=== PATIENT | female | born 1945 | race Hispanic/Latino ===

== ENCOUNTER 2017-03-12 16:28 | Emergency (ER) | payer OTHER, MEDICARE ==
[2017-03-12 16:36] VITALS: BMI 26.5
[2017-03-12 16:42] VITALS: BP 127/79; PULSE 70; RESP 19; TEMP 98.6; O2SAT 96
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
== END 2017-03-12 18:16 | disposition home or self-care (01) ==
LOC: ED 16:28
DX: S09.90XA Unspecified injury of head, initial encounter (principal); S16.1XXA Strain of muscle, fascia and tendon at neck level, initial encounter; V49.49XA Driver injured in collision with other motor vehicles in traffic accident, initial encounter; Y92.410 Unspecified street and highway as the place of occurrence of the external cause

== ENCOUNTER 2018-01-25 14:03 | Observation (INO) | payer MEDICARE, OTHER ==
[2018-01-25 14:07] VITALS: BMI 28.9
[2018-01-25] MEDS ORDERED: Ipratropium 0.02% Inhal Soln (0.5 mg/2.5 ml) UD IH STA (14:07)
--- NOTE | 2018-01-25 14:42 | ED PDOC ---
Arrival/HPI - General Time Seen by Provider: 01/25/18 14:07 Historian: Patient - History of Present Illness Narrative History of Present Illness (Text): 01/25/18 14:03 A 72 year old female non-smoker, whose past medical history includes COPD and hypertension, presents to the emergency department complaining of persistent productive cough with yellowish mucous for 1 week. Patient reports cough has been nagging and was originally associated with body aches, fever, chills, and sore throat, however accompanied symptoms are no longer present. Patient notes experiencing increasing shortness of breath, but denies any chest pain, nausea, vomiting, or any recent fever. No PMD Past Medical History - Provider Review Nursing Documentation Reviewed: Yes - Infectious Disease Hx of Infectious Diseases: None - Tetanus Immunization Tetanus Immunization: Unknown - Cardiac Hx Cardiac Disorders: Yes Hx Hypertension: Yes - Pulmonary Hx Respiratory Disorders: Yes Hx Asthma: Yes - Neurological Hx Neurological Disorder: No - HEENT Hx HEENT Disorder: No - Renal Hx Renal Disorder: No - Endocrine/Metabolic Hx Endocrine Disorders: No - Hematological/Oncological Hx Blood Disorders: No - Integumentary Hx Dermatological Disorder: No - Musculoskeletal/Rheumatological Hx Musculoskeletal Disorders: No - Gastrointestinal Hx Gastrointestinal Disorders: No - Genitourinary/Gynecological Hx Genitourinary Disorders: No - Psychiatric Hx Psychophysiologic Disorder: No Hx Depression: No Hx Emotional Abuse: No Hx Physical Abuse: No Hx Substance Use: No - Past Surgical History Past Surgical History: Non-Contributing - Surgical History Hx Tubal Ligation: Yes - Anesthesia Hx Anesthesia: Yes Hx Anesthesia Reactions: No - Suicidal Assessment Feels Threatened In Home Enviroment: No Family/Social History - Physician Review Nursing Documentation Reviewed: Yes Family/Social History: No Known Family HX Smoking Status: Never Smoked Hx Alcohol Use: No Hx Substance Use: No Hx Substance Use Treatment: No Allergies/Home Meds Allergies/Adverse Reactions: Allergies No Known Allergies Allergy (Verified 03/12/17 16:37) Home Medications: Home Meds Medication Instructions Recorded Confirmed Hydrochlorothiazide/Valsarta 1 tab PO QAM 04/03/14 03/12/17 [Diovan Hct 12.5 mg-160 mg] Review of Systems - Physician Review All systems were reviewed & negative as marked: Yes - Review of Systems Constitutional: absent: Fevers, Night Sweats ENT: absent: Sore Throat Respiratory: SOB (increasing), Cough (productive) Cardiovascular: absent: Chest Pain Gastrointestinal: absent: Nausea, Vomiting Physical Exam Vital Signs Reviewed: Yes Vital Signs Temp Pulse Resp BP Pulse Ox 01/25/18 16:05 99.0 F 83 18 140/62 99 01/25/18 14:13 98.4 F 81 18 120/77 98 Temperature: Afebrile Blood Pressure: Normal Pulse: Regular Respiratory Rate: Normal Appearance: Positive for: Well-Appearing Pain Distress: None Mental Status: Positive for: Alert and Oriented X 3 - Systems Exam Head: Present: Atraumatic, Normocephalic Pupils: Present: PERRL Extroacular Muscles: Present: EOMI Mouth: Present: Moist Mucous Membranes Respiratory/Chest: Present: Wheezes (expiratory), Rhonchi (scattered ) Cardiovascular: Present: Regular Rate and Rhythm, Normal S1, S2. No: Murmurs Abdomen: No: Tenderness, Distention, Peritoneal Signs Upper Extremity: Present: Normal Inspection. No: Cyanosis, Edema Lower Extremity: Present: Normal Inspection. No: Edema Neurological: Present: GCS=15, CN II-XII Intact, Speech Normal Skin: Present: Warm, Dry, Normal Color. No: Rashes Psychiatric: Present: Alert, Oriented x 3, Normal Insight, Normal Concentration Medical Decision Making ED Course and Treatment: 01/25/18 14:07 Impression: 72 year old female with productive cough. Physical exam shows expiratory wheezing and scattered rhonchi. Plan: -- EKG -- Chest X-ray -- Labs -- Venous Blood Gas -- Duoneb -- Blood Culture -- Nasal Cannula O2 -- Urinalysis -- Reassess and disposition Progress Notes: 01/25/2018 14:50 Chest X-ray IMPRESSION: No active disease. No significant interval change compared to the prior examination(s). Dictator: Drew Patel MD - Lab Interpretations Lab Results: 01/25/18 15:05 01/25/18 15:05 Lab Results 01/25/18 15:05: Urine Color Light yellow, Urine Appearance Slight-cloudy, Urine pH 7.0, Ur Specific [place] <= 1.005, Urine Protein Trace H, Urine Glucose (UA) Negative, Urine Ketones Negative, Urine Blood Trace-intact H, Urine Nitrate Negative, Urine Bilirubin Negative, Urine Urobilinogen 0.2, Ur Leukocyte Esterase Large H, Urine RBC 2 - 5, Urine WBC 25 - 30, Ur Epithelial Cells 0 - 2 , Urine Bacteria Mod, Urine Other Utrans 01/25/18 15:05: Sodium 139, Chloride 99, Potassium 4.1, Carbon Dioxide 29, Anion Gap 16, BUN 12, Creatinine 0.9, Est GFR ( Amer) > 60, Est GFR (Non- Af Amer) > 60, Random Glucose 103, Calcium 9.3, Total Bilirubin 0.8, AST 23, ALT 32, Alkaline Phosphatase 86, Lactate Dehydrogenase 400, Total Creatine Kinase 90, Troponin I < 0.01, NT-Pro-B Natriuret Pep 74.8, Total Protein 7.4, Albumin 4.3, Globulin 3.1, Albumin/Globulin Ratio 1.4 01/25/18 15:05: pO2 18 L, VBG pH 7.39, VBG pCO2 49.0, VBG HCO3 29.7 H, VBG Total CO2 31.2 H, VBG O2 Sat (Calc) 42.8, VBG Base Excess 3.7 H, VBG Potassium 4.0, Sodium 139.0, Chloride 101.0, Glucose 116 H, Lactate 1.8, FiO2 21.0, Venous Blood Potassium 4.0 01/25/18 15:05: PT 12.4, INR 1.09 H, APTT 34.1 01/25/18 15:05: WBC 4.6, RBC 4.63, Hgb 14.0, Hct 41.8, MCV 90.3, MCH 30.2, MCHC 33.5, RDW 13.3, Plt Count 247, MPV 8.6, Gran % 65.6, Lymph % (Auto) 23.9, [place] % (Auto) 9.0 H, Eos % (Auto) 1.1 L, Baso % (Auto) 0.4, Gran # 2.99, Lymph # ( Auto) 1.1 L, [place] # (Auto) 0.4, Eos # (Auto) 0.1, Baso # (Auto) 0.02 I have reviewed the lab results: Yes - RAD Interpretation Radiology Orders: 01/25/18 14:09 CHEST PORTABLE [RAD] Stat - Medication Orders Current Medication Orders: Discontinued Medications Albuterol/Ipratropium (Duoneb 3 Mg/0.5 Mg (3 Ml) Ud) 3 ml IH Q15M CATHY Stop: 01/25/18 15:01 Last Admin: 01/25/18 15:20 Dose: 3 ml Ipratropium [place] (Atrovent) 0.5 mg IH STAT STA Stop: 01/25/18 14:08 Last Admin: 01/25/18 15:35 Dose: 0.5 mg Methylprednisolone (Solu-Medrol) 125 mg IVP STAT STA Stop: 01/25/18 14:21 Last Admin: 01/25/18 14:55 Dose: 125 mg IVP Administration Document 01/25/18 14:55 OCS (Rec: 01/25/18 14:55 OCS [id number]) Charges for Administration # of IVP Administrations 1 - Scribe Statement The provider has reviewed the documentation as recorded by the Tran Taveras Provider Scribe Attestation: All medical record entries made by the Scribe were at my direction and personally dictated by me. I have reviewed the chart and agree that the record accurately reflects my personal performance of the history, physical exam, medical decision making, and the department course for this patient. I have also personally directed, reviewed, and agree with the discharge instructions and disposition. Disposition/Present on Arrival - Present on Arrival Any Indicators Present on Arrival: No History of DVT/PE: No History of Uncontrolled Diabetes: No Urinary Catheter: No History Surgical Site Infection Following: None - Disposition Have Diagnosis and Disposition been Completed?: Yes Diagnosis: COPD with acute bronchitis, Near syncope Disposition: HOSPITALIZED Disposition Time: 16:37 Patient Plan: Admission, Telemetry Condition: GUARDED
--- NOTE | 2018-01-25 14:51 | RAD ---
HISTORY: Point shortness of breath. COMPARISON: 08/23/2016 FINDINGS: LUNGS: No active pulmonary disease. Incidental finding(s): Calcified granuloma left lower lobe. PLEURA: No significant pleural effusion identified, no pneumothorax apparent. CARDIOVASCULAR: No radiographic findings to suggest acute or significant cardiovascular disease. OSSEOUS STRUCTURES: No significant abnormalities. VISUALIZED UPPER ABDOMEN: Normal. OTHER FINDINGS: None. IMPRESSION: No active disease. No significant interval change compared to the prior examination(s).
[2018-01-25] MEDS: Albuterol-Ipratrop 3 mg / 0.5 (3 ml) UD IH SCH ×3 (14:55→15:20)
[2018-01-25 15:20] LABS: VENOUS BLOOD GAS BASE EXCESS 3.7 mmol/L (0.0-2.0); VENOUS BLOOD GAS PO2 18 mm/Hg (30-55); VENOUS BLOOD PH 7.39 (7.32-7.43)
[2018-01-25 15:21] LABS: BASO # 0.02 K/mm3 (0.0-2.0); BASO % 0.4 % (0.0-3.0); EOS # 0.1 (0.0-0.7); EOS % 1.1 % (1.5-5.0); GRAN # 2.99 (1.4-6.5); GRAN % 65.6 % (50.0-68.0); LYMPH # 1.1 (1.2-3.4); LYMPH % 23.9 % (22.0-35.0); MEAN CELL VOLUME 90.3 fl (80.0-105.0); MEAN CORPUSCULAR HEMOGLOBIN 30.2 pg (25.0-35.0); MEAN CORPUSCULAR HGB CONC 33.5 g/dl (31.0-37.0); MEAN PLATELET VOLUME 8.6 fl (7.0-11.0); MONO # 0.4 (0.1-0.6); RBC 4.63 10^6/uL (3.5-6.1); RED CELL DISTRIBUTION WIDTH 13.3 % (11.5-14.5); WHITE BLOOD COUNT 4.6 10^3/ul (4.5-11.0)
[2018-01-25 15:22] LABS: URINE BILIRUBIN NEGATIVE (NEGATIVE); URINE BLOOD TRACE-INTACT (NEGATIVE); URINE GLUCOSE (UA) NEGATIVE (NEGATIVE); URINE LEUKOCYTE ESTERASE LARGE Leu/uL (NEGATIVE); URINE PROTEIN TRACE mg/dL (<30 mg/dL); URINE UROBILINOGEN 0.2 E.U./dL (<1 E.U./dL)
[2018-01-25 15:23] LABS: URINE APPEARANCE SLIGHT-CLOUDY (CLEAR); URINE COLOR LIGHT YELLOW (YELLOW)
[2018-01-25 15:30] LABS: ALB/GLOB RATIO 1.4 (1.1-1.8); ALBUMIN 4.3 g/dL (3.0-4.8); ALT/SGPT 32 U/L (7-56); AST/SGOT 23 U/L (14-36); BLOOD UREA NITROGEN 12 mg/dL (7-21); CALCIUM 9.3 mg/dL (8.4-10.5); GFR AFRICAN-AMERICAN > 60; GFR NON-AFRICAN AMERICAN > 60
[2018-01-25 15:35] LABS: INR 1.09 (0.93-1.08); PARTIAL THROMBOPLASTIN TIME 34.1 Seconds (25.1-36.5); PROTHROMBIN TIME 12.4 SECONDS (9.4-12.5)
[2018-01-25 15:40] LABS: URINE BACTERIA MOD (NEG); URINE EPITHELIAL CELLS 0 - 2 /hpf (0-5); URINE WBC 25 - 30 /hpf (0-6)
[2018-01-25 15:42] LABS: B-TYPE NATRIURETIC PEPTIDE 74.8 pg/mL (0-450); TROPONIN I < 0.01 ng/mL
[2018-01-25] MEDS ORDERED: Albuterol-Ipratrop 3 mg / 0.5 (3 ml) UD IH STA (17:45)
[2018-01-25] MEDS ORDERED: Albuterol-Ipratrop 3 mg / 0.5 (3 ml) UD IH PRN (18:25)
[2018-01-25] MEDS ORDERED: cefTRIAXone 1 gm 1 GM/100 ML BAG IVPB STA (18:32)
--- NOTE | 2018-01-25 20:10 | CARD ---
APPROVED REPORT EKG Measurement Heart [id number] CT [id number] <Conclusion> Sinus rhythm with occasional premature ventricular complexes Otherwise normal ECG
--- NOTE | 2018-01-25 22:55 | CP.PCM.PN ---
Subjective - Date & Time of Evaluation Date of Evaluation: 01/25/18 Time of Evaluation: 22:55 - Subjective Subjective: Nurse calls for an order of rapid flu test. Patient allegedly had cough, body aches. Later on she calls to get an order for cough medicine. Patient was seen at bedside. States that she has cough with yellow sputum. She had fever, headache, sore throat nausea, body aches.They have passed. No other complaints now. This 72 year old white woman is admitted with cough with expectorant, bodyache , fever, chills , sore throat. Has PMH of COPD, HTN, tubal ligation. Objective - Vital Signs/Intake and Output Vital Signs (last 24 hours): Temp Pulse Resp BP Pulse Ox 98.2 F 84 18 116/78 100 01/25/18 19:45 01/25/18 19:45 01/25/18 19:45 01/25/18 19:45 01/25/18 19:45 - Medications Medications: Current Medications Albuterol/Ipratropium (Duoneb 3 Mg/0.5 Mg (3 Ml) Ud) 3 ml IH Q4H PRN PRN Reason: Shortness of Breath Albuterol/Ipratropium (Duoneb 3 Mg/0.5 Mg (3 Ml) Ud) 3 ml IH Q0HYMSU [facility] Hydrochlorothiazide (Microzide) 12.5 mg PO DAILY [facility] Ceftriaxone Sodium (Rocephin 1 Gram Ivpb) 1 gm in 100 mls @ 100 mls/hr IVPB DAILY [facility] PRN Reason: Protocol Losartan Potassium (Cozaar) 100 mg PO DAILY [facility] Methylprednisolone (Solu-Medrol) 60 mg IVP Q8 [facility] - Labs Labs: PT 12.4 SECONDS (9.4-12.5) 01/25/18 15:05 INR 1.09 (0.93-1.08) H 01/25/18 15:05 APTT 34.1 Seconds (25.1-36.5) 01/25/18 15:05 Last Vital Signs 3 Temp 99.8 F H 01/26/18 00:01 Pulse 71 01/26/18 02:00 Resp 20 01/26/18 01:56 BP 118/61 01/26/18 00:01 Pulse Ox 96 01/26/18 01:56 Most Recent Lab Values WBC 4.6 10^3/ul (4.5-11.0) 01/25/18 15:05 RBC 4.63 10^6/uL (3.5-6.1) 01/25/18 15:05 Hgb 14.0 g/dL (12.0-16.0) 01/25/18 15:05 Hct 41.8 % (36.0-48.0) 01/25/18 15:05 MCV 90.3 fl (80.0-105.0) 01/25/18 15:05 MCH 30.2 pg (25.0-35.0) 01/25/18 15:05 MCHC 33.5 g/dl (31.0-37.0) 01/25/18 15:05 RDW 13.3 % (11.5-14.5) 01/25/18 15:05 Plt Count 247 10^3/uL (120.0-450.0) 01/25/18 15:05 MPV 8.6 fl (7.0-11.0) 01/25/18 15:05 Gran % 65.6 % (50.0-68.0) 01/25/18 15:05 Lymph % (Auto) 23.9 % (22.0-35.0) 01/25/18 15:05 Kimble % (Auto) 9.0 % (1.0-6.0) H 01/25/18 15:05 Eos % (Auto) 1.1 % (1.5-5.0) L 01/25/18 15:05 Baso % (Auto) 0.4 % (0.0-3.0) 01/25/18 15:05 Gran # 2.99 (1.4-6.5) 01/25/18 15:05 Lymph # (Auto) 1.1 (1.2-3.4) L 01/25/18 15:05 Kimble # (Auto) 0.4 (0.1-0.6) 01/25/18 15:05 Eos # (Auto) 0.1 (0.0-0.7) 01/25/18 15:05 Baso # (Auto) 0.02 K/mm3 (0.0-2.0) 01/25/18 15:05 PT 12.4 SECONDS (9.4-12.5) 01/25/18 15:05 INR 1.09 (0.93-1.08) H 01/25/18 15:05 APTT 34.1 Seconds (25.1-36.5) 01/25/18 15:05 pO2 18 mm/Hg (30-55) L 01/25/18 15:05 VBG pH 7.39 (7.32-7.43) 01/25/18 15:05 VBG pCO2 49.0 (40-60) 01/25/18 15:05 VBG HCO3 29.7 mmol/l (21-28) H 01/25/18 15:05 VBG Total CO2 31.2 mmol.L (22-28) H 01/25/18 15:05 VBG O2 Sat (Calc) 42.8 % (40-65) 01/25/18 15:05 VBG Base Excess 3.7 mmol/L (0.0-2.0) H 01/25/18 15:05 VBG Potassium 4.0 mmol/L (3.6-5.2) 01/25/18 15:05 Sodium 139.0 mmol/L (132-148) 01/25/18 15:05 Chloride 101.0 mmol/L (98-107) 01/25/18 15:05 Glucose 116 mg/dl (65-105) H 01/25/18 15:05 Lactate 1.8 mmol/L (0.7-2.1) 01/25/18 15:05 FiO2 21.0 % 01/25/18 15:05 Sodium 139 mmol/L (132-148) 01/25/18 15:05 Potassium 4.1 mmol/L (3.6-5.0) 01/25/18 15:05 Chloride 99 mmol/L (98-107) 01/25/18 15:05 Carbon Dioxide 29 mmol/L (21-33) 01/25/18 15:05 Anion Gap 16 (10-20) 01/25/18 15:05 BUN 12 mg/dL (7-21) 01/25/18 15:05 Creatinine 0.9 mg/dl (0.7-1.2) 01/25/18 15:05 Est GFR ( Amer) > 60 01/25/18 15:05 Est GFR (Non-Af Amer) > 60 01/25/18 15:05 Random Glucose 103 mg/dL (70-110) 01/25/18 15:05 Calcium 9.3 mg/dL (8.4-10.5) 01/25/18 15:05 Total Bilirubin 0.8 mg/dL (0.2-1.3) 01/25/18 15:05 AST 23 U/L (14-36) 01/25/18 15:05 ALT 32 U/L (7-56) 01/25/18 15:05 Alkaline Phosphatase 86 U/L (38-126) 01/25/18 15:05 Lactate Dehydrogenase 400 U/L (333-699) 01/25/18 15:05 Total Creatine Kinase 90 U/L (35-230) 01/25/18 15:05 Troponin I < 0.01 ng/mL 01/25/18 15:05 NT-Pro-B Natriuret Pep 74.8 pg/mL (0-450) 01/25/18 15:05 Total Protein 7.4 g/dL (5.8-8.3) 01/25/18 15:05 Albumin 4.3 g/dL (3.0-4.8) 01/25/18 15:05 Globulin 3.1 gm/dL 01/25/18 15:05 Albumin/Globulin Ratio 1.4 (1.1-1.8) 01/25/18 15:05 Venous Blood Potassium 4.0 mmol/L (3.6-5.2) 01/25/18 15:05 Urine Color Light yellow (YELLOW) 01/25/18 15:05 Urine Appearance Slight-cloudy (CLEAR) 01/25/18 15:05 Urine pH 7.0 (4.7-8.0) 01/25/18 15:05 Ur Specific Lykens <= 1.005 (1.005-1.035) 01/25/18 15:05 Urine Protein Trace mg/dL (<30 mg/dL) H 01/25/18 15:05 Urine Glucose (UA) Negative mg/dL (NEGATIVE) 01/25/18 15:05 Urine Ketones Negative mg/dL (NEGATIVE) 01/25/18 15:05 Urine Blood Trace-intact (NEGATIVE) H 01/25/18 15:05 Urine Nitrate Negative (NEGATIVE) 01/25/18 15:05 Urine Bilirubin Negative (NEGATIVE) 01/25/18 15:05 Urine Urobilinogen 0.2 E.U./dL (<1 E.U./dL) 01/25/18 15:05 Ur Leukocyte Esterase Large Rodrick/uL (NEGATIVE) H 01/25/18 15:05 Urine RBC 2 - 5 /hpf (0-2) 01/25/18 15:05 Urine WBC 25 - 30 /hpf (0-6) 01/25/18 15:05 Ur Epithelial Cells 0 - 2 /hpf (0-5) 01/25/18 15:05 Urine Bacteria Mod (NEG) 01/25/18 15:05 Urine Other Utrans 01/25/18 15:05 Influenza Typ A,B (EIA) Negative for flu a/b (NEGATIVE) 01/25/18 21:30 - Constitutional Appears: Well, No Acute Distress - Head Exam Head Exam: ATRAUMATIC, NORMAL INSPECTION, NORMOCEPHALIC - Eye Exam Eye Exam: Normal appearance - ENT Exam ENT Exam: Normal External Ear Exam - Neck Exam Neck Exam: Normal Inspection - Respiratory Exam Respiratory Exam: NORMAL BREATHING PATTERN - Cardiovascular Exam Cardiovascular Exam: absent: JVD - GI/Abdominal Exam GI & Abdominal Exam: absent: Distended - Rectal Exam Rectal Exam: Deferred - Exam Additional comments: Deferred. - Extremities Exam Extremities Exam: Normal Inspection - Back Exam Back Exam: NORMAL INSPECTION - Neurological Exam Neurological Exam: Alert, Awake, Oriented x3 - Psychiatric Exam Psychiatric exam: Normal Affect, Normal Mood - Skin Skin Exam: Normal Color Assessment and Plan - Assessment and Plan (Free Text) Assessment: Cough with expectorant. Harsh cough. Cough secondary to Cozaar? ?Whooping cough. Flu like symptoms. HTN. COPD. History of tubal ligation. Plan: Robitussin 200 mg PO Q4H prn cough. Codeine phosphate 30 mg PO X 1. Sputum for gram stain , C & S. Hold Cozaar. Continue management as per PMD.
[2018-01-26] MEDS: Albuterol-Ipratrop 3 mg / 0.5 (3 ml) UD IH SCH ×3 (01:30→13:44)
[2018-01-26 02:05] VITALS: RESP 20
[2018-01-26] MEDS ORDERED: guaiFENesin 200 mg/10 ml Syrup UD PO PRN (02:46)
[2018-01-26 06:25] VITALS: O2SAT 94
[2018-01-26] MEDS ORDERED: Iohexol 350 MG/100 ML VIAL ONE (07:53)
[2018-01-26] MEDS ORDERED: [UNRECOGNIZED DRUG - OTHER] PO SCH (10:00)
[2018-01-26] MEDS ORDERED: cefTRIAXone 1 gm 1 GM/100 ML BAG IVPB SCH (10:00)
--- NOTE | 2018-01-26 10:00 | CT ---
PROCEDURE: CT Chest with contrast HISTORY: copd COMPARISON: None. TECHNIQUE: Contiguous axial images were obtained through the chest with intravenous contrast enhancement. Sagittal and coronal reconstructions were performed. IV contrast: 100 cc of Omni 350 Radiation dose (DLP): 507 mGy-cm. This CT exam was performed using one or more of the following dose reduction techniques: Automated exposure control, adjustment of the mA and/or kV according to patient size, and/or use of iterative reconstruction technique. FINDINGS: LUNGS: There is linear scarring or atelectasis at both lung bases posteriorly. Small pleural effusions. Calcified granuloma in the left lower lobe. MEDIASTINUM: Unremarkable thoracic aorta. No aneurysm or dissection. Normal sized heart. Main pulmonary artery unremarkable. No vascular congestion. No lymphadenopathy. PLEURA: Small pleural effusions. BONES: No fracture. No destructive lesion. UPPER ABDOMEN: Grossly unremarkable. OTHER FINDINGS: None. IMPRESSION: Linear atelectasis or scarring at both lung bases. Small pleural effusions.
--- NOTE | 2018-01-26 10:11 | HP ---
HISTORY OF PRESENT ILLNESS: A 72-year-old white female with history of asthma, COPD, nonsmoker, seen in the office yesterday with severe shortness of breath, coughing, sputum production, difficulty breathing, near syncopal episode. The patient was sent to the ER for evaluation and was found to have urinary tract infection and also found to have severe hypoxia and hypercapnia. The patient was treated with steroids, bronchodilators and antibiotics. Vital signs are stable today at 98.8 and she is breathing more freely today. She has got shortness of breath. She is on antibiotics, bronchodilators and guaifenesin. She was going to have a CT of the chest today to rule out other bronchiectasis versus pneumonia and she will be discharged home if CAT scan is negative. PHYSICAL EXAMINATION GENERAL: A well-developed, well-nourished white female in no apparent distress the following morning. HEENT: Within normal limits. HEART: Regular sinus rhythm. CHEST: Rhonchi, rales, and wheezing in all lung leon, but decreased from previous. ABDOMEN: Benign. EXTREMITIES: No cyanosis, clubbing, or edema. NEUROLOGIC: Appears grossly intact. Ariel Morales MD
[2018-01-26 14:12] VITALS: BP 139/70; PULSE 83; TEMP 98.3
--- NOTE | 2018-01-27 01:30 | CON ---
DATE: 01/26/2018 PULMONARY CONSULT REFERRING PHYSICIAN: Ariel Morales MD. REASON FOR CONSULT: Cough, shortness of breath, loud snoring, daytime sleepy and tired. HISTORY OF PRESENT ILLNESS: This is a 72-year-old female with past medical history significant for chronic obstructive lung disease, who has a history of loud snoring, daytime sleepy, has been having cough, shortness of breath. No nausea. No vomiting. No diarrhea. No leg pain or leg swelling. PAST MEDICAL HISTORY: Significant for chronic lung disease, hypertension. SOCIAL HISTORY: She has a positive history of passive smoking. Denies any alcohol use. ALLERGIES: NONE KNOWN. FAMILY HISTORY: No significant cardiopulmonary disease reported. MEDICATIONS: She is on codeine 30 mg was given, albuterol/Atrovent nebulizer every 4 hours p.r.n., also on hydrochlorothiazide 12.5 mg daily, Robitussin 200 mg every 4 hours, Solu-Medrol 60 mg every 8 hours, Rocephin 1 g daily. REVIEW OF SYSTEMS: No headache. Has some rhinitis, cough, shortness of breath. No sputum production. No chest pain. No nausea. No vomiting. No diarrhea, leg pain, leg swelling. Admits to a loud snoring, daytime sleepy and tired. PHYSICAL EXAMINATION: GENERAL: Sitting on side of the bed. VITAL SIGNS: Temperature is 98, heart rate is 83, respiratory rate is 20, blood pressure 139/70, pulse ox 94% on room air. HEENT: Moist mucous membrane. Crowded airway. Mallampati score is 4. NECK: Supple. No JVD. LUNGS: Have bilateral wheezing and some rhonchi. HEART: S1 and S2. ABDOMEN: Soft, nontender. No organomegaly. EXTREMITIES: There is no edema. NEUROLOGICAL: Awake and alert. Follows simple command. LABORATORY DATA: Shows hemoglobin of 14.1, hematocrit 41.8, WBC 4.6, platelet is 247. INR 1.09. PTT is 34. Has a VBG done, which shows pH 7.39, pCO2 of 49, O2 is 18, that is VBG on room air. Sodium 139, potassium 4.1, chloride 99, bicarbonate 29, BUN 12, creatinine 0.9, glucose 103, calcium 9.3, AST 23, ALT 32, alk phos is 86. LDH is 400. Troponin less than 0.01. Albumin is 4.3. Urine has beta hemolytic Strep group B. Blood culture has been negative. Has a CAT scan of the chest done on admission in the ER showing atelectasis and scarring in the both lung bases. Small pleural effusion. IMPRESSION AND PLAN: Chronic obstructive lung disease, hypertension, may have sleep apnea syndrome. The patient started on antibiotics, IV and inhaled bronchodilator. Will need a full pulmonary function test upon discharge as outpatient, also needs sleep study. Thank you and we will follow with you. Blade Davila MD
--- NOTE | 2018-01-27 07:28 | DS ---
HOSPITAL COURSE: The patient is a 72-year-old white female, admitted to the hospital with exacerbation of COPD. The patient was treated with steroids, bronchodilators, and IV antibiotics. The patient did well overnight. Chest x-ray was clear. She improved the next morning. Her O2 saturations were normal. She was able to be discharged home in improved condition, on p.o. steroids, p.o. antibiotics, and bronchodilators. FINAL DISCHARGE DIAGNOSIS: Exacerbation of chronic obstructive lung disease. Ariel Morales MD
== END 2018-01-26 14:45 | disposition home or self-care (01) ==
LOC: ED 14:03 → INTOOBSV 16:32 → ERH 16:32 → 2RNO 19:31
PROVIDERS: ADMIT Internal Medicine; ATTEND Internal Medicine
DX: J44.1 Chronic obstructive pulmonary disease with (acute) exacerbation (principal); N39.0 Urinary tract infection, site not specified; R09.02 Hypoxemia; R06.83 Snoring; I10 Essential (primary) hypertension; Z77.22 Contact with and (suspected) exposure to environmental tobacco smoke (acute) (chronic); Z98.51 Tubal ligation status
CPT/HCPCS: 71045; 71260; 80053; 81001; 82550; 82803; 83615; 83880; 84484; 85025; 85610; 85730; 87040; 87086; 87181; 87804; 93005; 94640; 94760; 96374; 96375; 96376; 99285; G0378; J0696; J2930; Q9967

== ENCOUNTER 2019-01-28 10:16 | Outpatient (CLI) | payer MEDICARE | END 2019-01-28 10:17 | disposition home or self-care (01) | LOC: RAD 10:16 ==